=== PATIENT | female | born 1985 | race Caucasian/White ===

== ENCOUNTER 2021-10-12 06:58 | Inpatient (IN) ==
[2021-10-12] MEDS ORDERED: ONDANSETRON 4 MG/2 ML VIAL IV PRN ×2 (07:09→19:13)
[2021-10-12] MEDS ORDERED: LACTATED RINGERS 500 ML IV PRN (07:09)
[2021-10-12] MEDS ORDERED: MEPERIDINE 50 MG/1 ML VIAL IV PRN ×2 (07:09)
[2021-10-12] MEDS ORDERED: BUTORPHANOL 2 MG/ML VIAL IV PRN (07:09)
[2021-10-12] MEDS ORDERED: AMPICILLIN INJ 2,000 MG in SODIUM CHLORIDE 0.9% 100 ML IV ONE (07:14)
[2021-10-12 07:40] LABS: Basophils % 0.2 % (0.0-0.8); Eosinophils # 0.1 10*3/uL (0.0-0.87); Eosinophils % 0.6 % (0.00-10.9); Hematocrit 30.8 VOL% (35.7-47.0); Hemoglobin 9.5 GM/DL (12.0-16.0); Immature Granulocytes % 1.7 %; Immature Granulocytes Absolute 0.23 #; Lymphocytes # 2.8 10*3/uL (1.4-4.0); Lymphocytes % 20.2 % (21.3-54.2); Mean Corpuscular HGB Conc 30.8 GM/DL (32-36); Mean Corpuscular Volume 81.1 FL (87-102); Mean Platelet Volume 11.2 FL (9.6-12.0); Monocytes % 6.9 % (1.7-12.7); Neutrophils % 70.4 % (38.7-73.9); Platelet Count 327 T/CUMM (130-400); Red Cell Distribution Width 15.1 % (9.3-17.3); White Blood Count 13.7 T/CUMM (4-12)
[2021-10-12] MEDS: LACTATED RINGERS 1,000 ML IV SCH ×2 (08:26→15:28)
[2021-10-12] MEDS ORDERED: OXYTOCIN/LR 20 UNIT/1,000 ML BAG IV SCH (08:30)
[2021-10-12] MEDS ORDERED: ePHEDrine 50 MG/ML VIAL IV PRN (10:54)
[2021-10-12] MEDS ORDERED: hydrOXYzine HCL 25 MG/1 ML VIAL IM PRN (10:54)
[2021-10-12] MEDS ORDERED: ONDANSETRON 4 MG/2 ML VIAL IV ONE (10:54)
[2021-10-12] MEDS ORDERED: PROMETHAZINE 25 MG/1 ML VIAL IM ONE (10:54)
[2021-10-12] MEDS ORDERED: CITRIC ACID/SODIUM CITRATE 30 ML UDCUP PO ONE (10:54)
[2021-10-12] MEDS ORDERED: FAMOTIDINE 20 MG/2 ML VIAL IV ONE (10:54)
[2021-10-12] MEDS ORDERED: NALOXONE 0.4 MG/ML VIAL IV PRN (10:54)
[2021-10-12] MEDS ORDERED: diphenhydrAMINE 50 MG/1 ML VIAL IV PRN ×2 (10:54)
[2021-10-12] MEDS ORDERED: fentaNYL 2 MCG/ROPIV 0.2% EPID 100 ML EPIDURAL SCH (11:00)
[2021-10-12] MEDS: AMPICILLIN INJ 1,000 MG in SODIUM CHLORIDE 0.9% 100 ML IV SCH ×2 (11:36→16:05)
[2021-10-12] MEDS ORDERED: CARBOPROST TROMETHAMINE 250 MCG/ML AMP IM ONE (18:31)
[2021-10-12] MEDS ORDERED: METHYLERGONOVINE 0.2 MG/1 ML AMP ONE (18:31)
[2021-10-12] MEDS ORDERED: TRANEXAMIC ACID 1,000 MG/10 ML VIAL ONE (18:31)
[2021-10-12] MEDS ORDERED: miSOPROStoL 200 MCG TABLET ONE (18:31)
[2021-10-12] MEDS ORDERED: SODIUM CHLORIDE 0.9% 0 ML IV ONE (18:31)
[2021-10-12] MEDS ORDERED: LANOLIN 50% CREAM 0.3 OZ TUBE TOP PRN (19:13)
[2021-10-12] MEDS ORDERED: oxyCODONE/ACETAMINOPHEN 5-325 MG TABLET PO PRN (19:13)
[2021-10-12] MEDS ORDERED: BISACODYL 10 MG SUPP RECTAL PRN (19:13)
[2021-10-12] MEDS ORDERED: BENZOCAINE 20%/MENTHOL 0.5% SPRAY 56 GM CAN TOP PRN (19:13)
[2021-10-12] MEDS ORDERED: RHO(D) IMMUNE GLOBULIN 300 MCG SYRINGE IM ONE (19:13)
[2021-10-12] MEDS ORDERED: HYDROCORTISONE 2.5% RECTAL CREAM 30 GM TUBE TOP PRN (19:13)
[2021-10-12] MEDS ORDERED: DIPH/TET/ACEL PERT BOOSTER VACCINE 0.5 ML VIAL IM ONE (19:13)
[2021-10-12] MEDS ORDERED: ACETAMINOPHEN 325 MG TABLET PO PRN (19:13)
[2021-10-12] MEDS ORDERED: MEASLES/MUMPS/RUBELLA VACCINE 0.5 ML VIAL SUBCUT ONE (19:13)
[2021-10-12] MEDS ORDERED: OXYTOCIN/LR 20 UNIT/1,000 ML BAG IV ONE (19:13)
[2021-10-12] MEDS ORDERED: WITCH HAZEL PADS 100/JAR TOP PRN (19:13)
[2021-10-12 19:18] LABS: Cord Venous Blood PCO2 44.1 MMHG; Cord Venous Blood PO2 26.5
[2021-10-12] MEDS: DOCUSATE SODIUM 100 MG CAPSULE PO SCH (22:10)
[2021-10-12] MEDS: IBUPROFEN 800 MG TABLET PO PRN (22:11)
[2021-10-13] MEDS: oxyCODONE/ACETAMINOPHEN 5-325 MG TABLET PO PRN ×3 (00:17→20:42)
[2021-10-13 05:15] LABS: Basophils % 0.1 % (0.0-0.8); Eosinophils # 0.1 10*3/uL (0.0-0.87); Eosinophils % 0.3 % (0.00-10.9); Hematocrit 28.1 VOL% (35.7-47.0); Hemoglobin 8.7 GM/DL (12.0-16.0); Immature Granulocytes Absolute 0.17 #; Lymphocytes # 2.6 10*3/uL (1.4-4.0); Lymphocytes % 15.3 % (21.3-54.2); Mean Corpuscular Volume 80.1 FL (87-102); Mean Platelet Volume 11.9 FL (9.6-12.0); Monocytes % 8.1 % (1.7-12.7); Neutrophils % 75.2 % (38.7-73.9); Platelet Count 283 T/CUMM (130-400); Red Blood Count 3.51 MC/CUMM (3.8-5.5); Red Cell Distribution Width 15.2 % (9.3-17.3); White Blood Count 17.1 T/CUMM (4-12)
[2021-10-13] MEDS: DOCUSATE SODIUM 100 MG CAPSULE PO SCH ×2 (08:23→21:34)
[2021-10-13] MEDS ORDERED: RHO(D) IMMUNE GLOBULIN 300 MCG SYRINGE IM ONE (11:23)
[2021-10-13] MEDS: IBUPROFEN 800 MG TABLET PO PRN ×2 (13:20→22:48)
[2021-10-14] MEDS: IBUPROFEN 800 MG TABLET PO PRN (04:56)
[2021-10-14] MEDS: DOCUSATE SODIUM 100 MG CAPSULE PO SCH (09:28)
[2021-10-14 09:46] VITALS: BP 119/74
== END 2021-10-14 12:07 | disposition home or self-care (01) | DRG 807 ==
LOC: N.LD 06:58 → N.OB 21:30
PROVIDERS: ADMIT Obstetrics & Gynecology; ATTEND Obstetrics & Gynecology